=== PATIENT | female | born 1985 | race African-American/Black ===

== ENCOUNTER 2017-03-16 22:28 | Emergency (ER) | payer MEDICAID ==
[~2017-03-16] VITALS: Ht 175.3 cm; Wt 72.5 kg
[2017-03-16 22:29] VITALS: BP 118/73; PULSE 62; RESP 15; TEMP 97.4; O2SAT 95
[2017-03-16] MEDS ORDERED: BUTA1CAP PO (23:53)
--- NOTE | 2017-03-16 23:53 | PD ---
HPI Chief Complaint: Headache Time Seen by Provider: 23:51 Travel History International Travel<30 days: No Contact w/Intl Traveler<30days: No Traveled to known affect area: No History of Present Illness HPI GENERALIZED HEAD PAIN, 10/28, HAS H/O MIGRAINE IN PAST, SIMILAR TO IT. NO PHOTOPHOBIA, NO ASSOCIATED N/V/D/CP/ABDPAIN/CHANGES IN VISION...NO AGGRAVATING/ ALLEVIATING FACTORS PFSH Past Medical History Cardiovascular Problems: Yes ([place]) ?: Not LMP: IUD in place 03/2015 Past Surgical History Abdominal Surgery: Yes (COLON SURGERY) Other Surgery: Yes (LEEP) Social History Alcohol Use: Yes (RARELY) Tobacco Use: No Substance Use: No Allergies-Medications (Allergen,Severity, Reaction): Coded Allergies: Sulfa (Sulfonamide Antibiotics) (Verified Allergy, Severe, 03/16/17) fluconazole (Verified Allergy, Severe, 03/16/17) latex (Verified Allergy, Severe, 03/16/17) sulfamethoxazole (Verified Allergy, Severe, 03/16/17) trimethoprim (Verified Allergy, Severe, 03/16/17) Reported Meds & Prescriptions Reported Meds & Active Scripts Active Fioricet (Uaxedpyisn-Xrsrqxdhefduy-Scrfipyy) 50-300-40 Mg Cap 1-2 Cap PO Q6H PRN Review of Systems Except as stated in HPI: all other systems reviewed are Neg General / Constitutional: No: Fever Eyes: No: Visual changes HENT: Positive: Headaches Cardiovascular: No: Chest Pain or Discomfort Respiratory: No: Shortness of Breath Gastrointestinal: No: Abdominal Pain Genitourinary: No: Dysuria Musculoskeletal: No: Pain Skin: No Rash Neurologic: No: Weakness Psychiatric: No: Depression Endocrine: No: Polydipsia Hematologic/Lymphatic: No: Easy Bruising Physical Exam Narrative GENERAL: SKIN: Warm and dry. HEAD: Atraumatic. Normocephalic. EYES: Pupils equal and round. No scleral icterus. No injection or drainage. ENT: No nasal bleeding or discharge. Mucous membranes pink and moist. NECK: Trachea midline. No JVD. CARDIOVASCULAR: Regular rate and rhythm. RESPIRATORY: No accessory muscle use. Clear to auscultation. Breath sounds equal bilaterally. GASTROINTESTINAL: Abdomen soft, non-tender, nondistended. MUSCULOSKELETAL: Extremities without clubbing, cyanosis, or edema. No obvious deformities. NEUROLOGICAL: Awake and alert. No obvious cranial nerve deficits. Motor grossly within normal limits. Five out of 5 muscle strength in the arms and legs. Normal speech. PSYCHIATRIC: Appropriate mood and affect; insight and judgment normal. Data Data Last Documented VS Orders Orders Ondansetron Odt (Zofran Odt) (03/17/17 00:00) Prochlorperazine Inj (Compazine Inj) (03/17/17 00:00) Ketorolac Inj (Toradol Inj) (03/17/17 00:00) Ed Discharge Order (03/17/17 00:10) MDM Medical Decision Making Medical Screen Exam Complete: Yes Emergency Medical Condition: Yes Medical Record Reviewed: Yes Differential Diagnosis TENSION IVEY V MIGRAINE (COMMON) Narrative Course PATIENT RESPONDED WELL TO TREATMENT, AND HAD RECENT IMAGING SHOWING NEG ICH OR MASS Diagnosis Primary Impression: HEADACHE Patient Instructions: Acute Headache (ED), General Instructions Scripts Knlaysenaq-Hiyfctozprkvu-Cmfxgptz (Fioricet) 50-300-40 Mg Cap 1-2 CAP PO Q6H Y for HEADACHE, #20 CAP 0 Refills Prov: Declan Crane MD 03/16/17 Disposition: 01 DISCHARGE HOME Condition: Stable Declan Crane MD Mar 16, 2017 23:53
[2017-03-17] MEDS ORDERED: ONDANSETRON ODT 4 MG TAB PO ONE
[2017-03-17] MEDS ORDERED: PROCHLORPERAZINE INJ 10 MG/2 ML VIAL IM ONE
[2017-03-17] MEDS ORDERED: KETOROLAC TROMETHAMINE 60 MG/2 ML (IM) VIAL IM ONE
== END 2017-03-17 00:19 | disposition home or self-care (01) ==
LOC: NEPD 22:28
DX: R51 Headache (principal); Z88.2 Allergy status to sulfonamides; Z88.8 Allergy status to other drugs, medicaments and biological substances
CPT/HCPCS: 96372; 99284; J0780; J1885